=== PATIENT | male | born 1990 | race Caucasian/White ===

== ENCOUNTER 2021-03-05 13:44 | Emergency (ER) | payer SELFPAY ==
--- NOTE | ~2021-03-05 | XR_ITS ---
EXAMINATION: XR ankle LT min 3V DATE: 03/05/2021 14:13 INDICATION: Left ankle injury and tenderness. TECHNIQUE: 4 views of left ankle were obtained. COMPARISON: None. FINDINGS: Bone alignment is normal. No fracture. There is mild midfoot osteoarthritis. There is ankle soft tissue swelling. IMPRESSION: 1. No fracture. Reviewed, dictated and finalized at location [facility]. IMPRESSION: 1. No fracture.
[2021-03-05 13:50] VITALS: BP 129/83; PULSE 95; RESP 14; TEMP 36.6; O2SAT 98
--- NOTE | 2021-03-05 13:50 | ED.LOWEXIN ---
HPI - Extremity Injury (Lower) General Chief Complaint: Extremity Injury, Lower Stated Complaint: Rolled L ankle Time Seen by Provider: 03/05/21 13:50 Source: patient Mode of arrival: wheelchair Limitations: no limitations History of Present Illness HPI Narrative: 30-year-old man comes in today complaining of right ankle pain that started last night while he was jumping on a trampoline. Patient states he rolled it while jumping. Denies any numbness or tingling and he states that he has had very limited weight-bearing on that ankle. He denies prior ankle surgery. complaint: ankle injury Onset (ago): hour(s) ( Approximately 18) Injury: Right: foot Type of Injury: inversion Place: home Severity: moderate Relieving factors: rest Exacerbating factors: weight bearing, movement and palpation Context: jumping Associated symptoms: swelling and able to partially bear weight Other symptoms: none Treatments prior to arrival: NSAIDS Related Data Home Medications Medication Instructions Recorded Confirmed No Home Medications 03/05/21 03/05/21 Allergies Allergy/AdvReac Type Severity Reaction Status Date / Time No Known Allergies Allergy Verified 09/25/19 22:58 Review of Systems Review of Systems: All systems reviewed & are unremarkable except as noted in HPI and below Cardiovascular: Cardiovascular: Denies chest pain and Denies radiating jaw, neck or arm pain Respiratory: Respiratory: Denies cough and Denies dyspnea Gastrointestinal: Gastrointestinal: Denies abdominal pain, Denies nausea and Denies vomiting Musculoskeletal: Musculoskeletal: Reports as per HPI, Denies back pain, Reports arthralgias and Reports joint swelling Integumentary/Breasts: Skin/Breast: Denies pruritus and Denies rash Neurologic: Denies vertigo, Denies dizziness and Denies syncope Hematologic/Lymphatic: Hematologic/Lymphatic: Denies easy bleeding and Denies easy bruising PMFSH Past Medical History Medical History ASD (atrial septal defect) Surgical History Surgical History History of repair of congenital atrial septal defect (ASD) Family History Family History (Updated 09/26/19 @ 00:41 by Darwin ZeeMD) Mother No problems noted. Social History Social History Smoking status: Never smoker Substance use: never Exam Const: General: healthy appearing and alert Orientation/consciousness: patient oriented x3 Limitations: no limitations Other: Mild acute distress. Hard of hearing. Resp: Effort & Inspection: normal respiratory effort and not labored Auscultation: clear to auscultation bilaterally, no rales, no rhonchi and no wheezes Cardio: Rate: regular rate Rhythm: regular rhythm Heart sounds: no murmurs Skin: General skin exam: normal color, no jaundice and no pallor Rashes: no rashes Neuro: General: patient oriented x3, moves all extremities, no focal motor deficits and CN's II-XI intact bilaterally Speech: normal speech Extrem: General: normal to inspection and no clubbing, cyanosis or edema Other: Tenderness and swelling over lateral aspect of the right ankle. There is tenderness over the bony malleolus. There is no tenderness over the medial malleolus, midfoot, me, calcaneus or toes. Psych: Appearance: grossly normal and well kempt Mental Status: mental status grossly normal Affect: normal affect Attitude: cooperative Thought content: Yes Normal thought content present MDM - Extremity Injury (Lower) Imaging Data Radiologist's impression: ITS Impressions Ankle X-Ray 03/05/21 14:14 IMPRESSION: 1. No fracture. Discharge Plan Discharge Clinical Impression: Right ankle sprain Qualifiers: Encounter type: initial encounter Involved ligament of ankle: unspecified ligament Qualified Code(s): S93.401A
[2021-03-05] MEDS: traMADol HCL (*CRX) 50 MG TABLET PO (14:16)
[2021-03-05 14:34] VITALS: RESP 15; O2SAT 98
== END 2021-03-05 14:41 | disposition home or self-care (01) ==
PROVIDERS: Emergency Provider Emergency Medicine
DX: S93.401A Sprain of unspecified ligament of right ankle, initial encounter (principal)
CPT/HCPCS: 73610; 99283; A9270; L4350

== ENCOUNTER 2022-04-06 10:53 | Emergency (ER) | payer MEDICAID, SELFPAY ==
[2022-04-06] VITALS (11 sets, daily range): BP systolic 124–135; BP diastolic 71–99; PULSE 18–119; RESP 18–98; TEMP 36.5–36.7; O2SAT 93–97
--- NOTE | ~2022-04-06 | CT_ITS ---
EXAMINATION: CTA chest PE protocol DATE: 04/06/2022 12:21 INDICATION: Shortness of breath. Elevated elevated d-dimer. TECHNIQUE: Computed tomography angiography (CTA) of the chest was performed with 100 mL Omnipaque-350 intravenous contrast timed to evaluate the pulmonary arteries. Coronal maximum intensity projection 3D-reconstructions were created by the technologist. Automated exposure control and iterative reconst ruction technique were employed. Exam dose: 341.89 mGy-cm total exam DLP. COMPARISON: 04/06/2022 portable AP chest FINDINGS: There is diagnostic contrast enhancement of the pulmonary arteries and no evidence of pulmo nary embolism. No thoracic aortic aneurysm. Cardiomegaly. No pericardial effusion. There are moderate bilateral pleural effusions There there is mild prominence of the hilar and mediastinal nodes, which may be reactive. There are bilateral patchy groundglass infiltrates throughout the lungs, suggesting pulmonary edema. Pneumonia is not excluded. Is reflux of contrast material into the inferior vena cava indicating some heart dysfunction. There is scoliosis and degenerative spurring of the thoracic and lumbar spine. IMPRESSION: Cardiomegaly, congestive changes including bilateral pleural effusions, bilateral patchy groundglass infiltrates. Findings are consistent with congestive heart failure, pulmonary edema No evidence of pulmonary embolism Reviewed, dictated and finalized at [facility]. Reviewed, dictated and finalized at location B. IMPRESSION: Cardiomegaly, congestive changes including bilateral pleural effus ions, bilateral patchy groundglass infiltrates. Findings are consistent with co ngestive heart failure, pulmonary edema No evidence of pulmonary embolism
--- NOTE | ~2022-04-06 | XR_ITS ---
EXAMINATION: XR chest 1V portable INDICATION: Shortness of breath TECHNIQUE: Portable AP chest at 1118 hours COMPARISON: None available FINDINGS: There are bilateral perihilar opacities. There are minimal airspace opacities of the lung b ases, left greater than right. The heart size is upper limits of normal for technique. No pleural eff usion or pneumothorax. There is thoracic dextroscoliosis. IMPRESSION: 1. Bilateral perihilar opacities which could reflect mild pulmonary edema. 2. Reviewed, dictated and finalized at location A.
--- NOTE | 2022-04-06 10:59 | ED.SOB ---
HPI - SOB/Dyspnea General Chief Complaint: Shortness of Breath/Dyspnea Stated Complaint: CHEST PAIN Time Seen by Provider: 04/06/22 10:59 Source: patient Mode of arrival: ambulatory History of Present Illness HPI Narrative: 31-year-old male with a history ASD status post repair as a child, asthma, hard of hearing presents to the ER with a 3 day history of -- cough which is productive of mucoid sputum -- shortness of breath with wheezing -- anterior chest wall pain MD elicited complaint: shortness of breath, cough, pain with inspiration and chest pain Pertinent past history: asthma Onset (ago): day(s) ( started 3 days ago) Timing: constant Severity: moderate Exacerbating factors: nothing Relieving factors: nothing Known history of: asthma Associated symptoms: chest pain, pain with inspiration, cough, wheezing, sputum production and chest congestion Treatment prior to arrival: none Related Data Home oxygen amount: none Home Medications Medication Instructions Recorded Confirmed No Home Medications 03/05/21 04/06/22 Allergies Allergy/AdvReac Type Severity Reaction Status Date / Time No Known Allergies Allergy Verified 04/06/22 11:00 Review of Systems Review of Systems: All systems reviewed & are unremarkable except as noted in HPI and below Constitutional: Constitutional: Reports as per HPI and Reports no additional constitutional complaints Eyes: Eyes: Reports as per HPI and Reports no additional eye complaints ENT: Reports system reviewed and no additional complaints, except as documented and Reports as per HPI Comments: sore throat Cardiovascular: Cardiovascular: Reports as per HPI and Reports no additional cardiovascular complaints Respiratory: Respiratory: Reports as per HPI, Reports no additional respiratory complaints, Reports chest congestion, Reports cough, Reports dyspnea and Reports wheezing Gastrointestinal: Gastrointestinal: Reports as per HPI and Reports no additional gastrointestinal complaints Genitourinary: Genitourinary: Reports no additional male genitourinary complaints and Reports as per HPI Musculoskeletal: Musculoskeletal: Reports no additional musculoskeletal complaints and Reports as per HPI Integumentary/Breasts: Skin/Breast: Reports system reviewed and no additional complaints, except as docu and Reports as per HPI Neurologic: Reports system reviewed and no additional complaints, except as documented and Reports as per HPI Psychiatric: Psychiatric: Reports no additional psychiatric complaints and Reports as per HPI Endocrine: Endocrine: Reports no additional endocrine complaints and Reports as per HPI Hematologic/Lymphatic: Hematologic/Lymphatic: Reports no additional hematologic/lymphatic complaints and Reports as per HPI Allergic/Immunologic: Allergic/Immunologic: Reports no additional allergic/immunologic complaints and Reports as per HPI [facility] Past Medical History Medical History (Updated 04/06/22 @ 12:51 by Pola Vyas MD) ASD (atrial septal defect) Asthma Surgical History Surgical History History of repair of congenital atrial septal defect (ASD) Family History Family History Mother No problems noted. Social History Social History Smoking status: Never smoker Alcohol use details: denies alcohol use Substance use: never Exam Const: General: ill appearing Nutritional Appearance: thin Orientation/consciousness: patient oriented x3 Limitations: no limitations HENMT: Head: normal to inspection Ears: external ears normal General nose exam: Normal external nose present Face and sinus: normal facial exam Mouth: Yes Normal oral and palatal mucosa present Throat: posterior oropharynx normal ( pharyngeal erythema. No exudates.) Eyes: Conjunctivae: conjunctivae normal
--- NOTE | 2022-04-06 11:04 | ECG_ITS ---
Measurements Intervals [place] Rate: 107 P: SD: 0 QRS: 31 QRSD: 101 T: 88 QT: 350 QTc: 468 Interpretive Statements ATRIAL FIBRILLATION WITH RAPID VENTRICULAR RESPONSE NONSPECIFIC T-WAVE ABNORMALITY ABNORMAL RHYTHM ECG NO PREVIOUS ECG AVAILABLE FOR COMPARISON Electronically Signed On 04-06-2022 15:43:33 CDT by Renny Reynolds M.D.
[2022-04-06] MEDS: methylPREDNISolone SOD SUCC 125 MG VIAL IV PUSH (11:21)
[2022-04-06 11:23] LABS: Basophils Absolute Auto 0.03 K/mm3 (0.00-0.10); Basophils Percent Auto 0.5 % (0.0-1.0); Eosinophils Absolute Auto 0.09 K/mm3 (0.02-0.50); Eosinophils Percent Auto 1.4 % (1.0-6.0); Hematocrit 47.3 % (40.0-54.0); Hemoglobin 15.7 g/dL (14.0-18.0); Immature Granulocyte Absolute 0.01 K/mm3 (0.00-0.00); Immature Granulocyte Percent A 0.2 % (0.0-0.0); Lymphocytes Absolute Auto 1.16 K/mm3 (1.10-4.50); Lymphocytes Percent Auto 18.6 % (18.0-42.0); Mean Corpuscular HGB Conc 33.2 g/dL (32.0-36.0); Mean Corpuscular Hemoglobin 29.1 pg (27.0-31.0); Mean Corpuscular Volume 87.6 fL (78.0-102.0); Mean Platelet Volume 9.9 fl (8.7-11.0); Monocytes Absolute Auto 0.52 K/mm3 (0.10-0.90); Monocytes Percent Auto 8.3 % (2.0-11.0); Neutrophils Absolute Auto 4.4 K/mm3 (1.7-7.2); Platelet Count Result 361 K/mm3 (150-420); Red Cell Distribution Width 13.7 % (11.6-14.4); White Blood Count 6.2 K/mm3 (4.8-10.8)
[2022-04-06] MEDS: ALBUTEROL SULFATE (*SP) INHALER 2 PUFF INHALATION ×2 (11:23→11:56)
[2022-04-06 11:43] LABS: Lactic Acid Reflex 1.3 mmol/L (0.4-2.0)
[2022-04-06 11:45] LABS: Alanine Aminotransferase 28 U/L (16-63); Albumin Level 3.9 g/dL (3.4-5.0); Alkaline Phosphatase 81 U/L (46-116); Anion Gap 6 mmol/L (8-16); Aspartate Amino Transferase 16 U/L (15-37); Blood Urea Nitrogen 11 mg/dL (7-18); Calcium 8.7 mg/dL (8.5-10.1); Carbon Dioxide 30 mmol/L (21-32); Chloride 106 mmol/L (98-108); D Dimer 1.17 mg/L (0.19-0.50); Estimated CRCL calculation 117 ml/min; Estimated Glomerular Filt Rate > 60; Glucose 94 mg/dL (70-99); NT Pro B Type Natriuretic Pept 3316 pg/mL (0-125); Osmolality Calculated 293 mOsm/kg (285-295); Potassium 4.5 mmol/L (3.5-5.1); Sodium 142 mmol/L (136-145); Total Protein 6.4 g/dL (6.4-8.2); Troponin I 23.2 ng/L (0.00-60.4)
[2022-04-06 11:59] LABS: SARS-CoV-2 RNA PCR Negative (Negative)
[2022-04-06 12:00] LABS: Influenza A QL RT-PCR Negative (Negative); Influenza B QL RT-PCR Negative (Negative)
[2022-04-06] MEDS: SODIUM CHLORIDE 0.9% IV 500 ML 999 ML IV CONT (12:01)
[2022-04-06] MEDS: FUROSEMIDE INJ 40 MG/4 ML VIAL IV PUSH (13:00)
[2022-04-06 14:24] LABS: Thyroid Stimulating Hormone 2.35 uIU/mL (0.36-3.74)
== END 2022-04-06 16:15 | disposition short-term general hospital (02) ==
PROVIDERS: Emergency Provider Internal Medicine Critical Care Medicine
DX: I50.9 Heart failure, unspecified (principal); Z20.822 Contact with and (suspected) exposure to COVID-19
CPT/HCPCS: 36415; 71045; 71275; 80053; 83605; 83880; 84443; 84484; 85025; 85380; 87081; 87502; 87880; 93005; 94640; 96374; 96375; 99285; A9270; C9803; J1940; J2930; J7040; Q9967; U0003; U0005

== ENCOUNTER 2022-09-17 08:00 | Emergency (ER) | payer OTHER, SELFPAY ==
[2022-09-17 08:20] VITALS: BP 104/77; PULSE 88; RESP 16; TEMP 36.4; O2SAT 98
[2022-09-17 08:25] VITALS: BP 104/77; PULSE 88; RESP 18; TEMP 36.4; O2SAT 98
[2022-09-17 09:39] LABS: Strep Group A RT-PCR NOT DETECTED (Negative)
[2022-09-17 09:45] LABS: Influenza A QL RT-PCR Negative (Negative); Influenza B QL RT-PCR Negative (Negative); SARS-CoV-2 RNA PCR Negative (Negative)
[2022-09-17 09:46] LABS: RSV RNA, RT-PCR Negative (Negative)
--- NOTE | 2022-09-17 09:53 | ED.GENADULT ---
HPI - General Adult General Chief complaint: Upper Respiratory Infection Stated complaint: SORE THROAT CONGESTION Time Seen by Provider: 09/17/22 08:05 Source: patient Mode of arrival: ambulatory Limitations: no limitations History of Present Illness HPI narrative: This is a 32-year-old male who presents with a one-week history of cough shortness sore throat there is no fever or chills no shortness of breath no audible wheezing no nausea vomiting no chest pain. Onset (ago): week(s) Related Data Home Medications Medication Instructions Recorded Confirmed amiodarone 200 mg tablet 200 mg PO DAILY 09/17/22 09/17/22 carvedilol 12.5 mg tablet 12.5 mg PO DAILY 09/17/22 09/17/22 furosemide 20 mg tablet 20 mg PO DAILY 09/17/22 09/17/22 losartan 50 mg tablet 50 mg PO DAILY 09/17/22 09/17/22 rivaroxaban 20 mg tablet (Xarelto) 20 mg PO DAILY 09/17/22 09/17/22 spironolactone 25 mg tablet 25 mg PO DAILY 09/17/22 09/17/22 Allergies Allergy/AdvReac Type Severity Reaction Status Date / Time No Known Allergies Allergy Verified 09/17/22 08:52 Review of Systems Review of Systems: All systems reviewed & are unremarkable except as noted in HPI and below PMFSH Past Medical History Medical History ASD (atrial septal defect) Asthma Surgical History Surgical History History of repair of congenital atrial septal defect (ASD) Family History Family History Mother No problems noted. Social History Social History Smoking status: Never smoker Alcohol use details: denies alcohol use Substance use: never Exam Const: General: healthy appearing Nutritional Appearance: well nourished Orientation/consciousness: patient oriented x3 Limitations: no limitations HENMT: Head: normal to inspection Mouth: Yes Normal oral and palatal mucosa present Teeth and gingiva: dentition normal Other: Posterior pharynx appears erythematous with no tonsillar enlargement Eyes: Conjunctivae: conjunctivae normal Pupils: Equal, round and reactive pupils present EOM: EOMs intact bilaterally Direct Ophthalmoscopy: no photophobia Neck: Neck: normal visual inspection Chest: Chest palpation & inspection: normal inspection of the chest Resp: Effort & Inspection: normal respiratory effort Cardio: Rate: regular rate Rhythm: abnormal rhythm GI: GI Palp: Yes Soft to palpation Auscultation: normal bowel sounds Back/Spine/Pelvis: Back: no CVA tenderness Skin: General skin exam: normal color Rashes: no rashes Neuro: General: patient oriented x3 and moves all extremities Cranial nerves: Yes Nystagmus not present Speech: normal speech Extrem: General: normal to inspection Psych: Mental Status: mental status grossly normal Affect: normal affect Attitude: cooperative Course Course Emergency Course: COVID/influenza/ strep/ RSV all negative eyes patient to follow-up with his primary and to take medicine as prescribed. Vital Signs Vital signs: Vital Signs Temperature 36.4 C L 09/17/22 08:20 Pulse Rate 88 09/17/22 08:20 Respiratory Rate 16 09/17/22 08:20 Blood Pressure 104/77 09/17/22 08:20 Pulse Oximetry 98 09/17/22 08:20 Oxygen Delivery Room Air 09/17/22 08:20 Temperature 36.4 C L 09/17/22 08:25 Pulse Rate 88 09/17/22 08:25 Respiratory Rate 18 09/17/22 08:25 Blood Pressure 104/77 09/17/22 08:25 Pulse Oximetry 98 09/17/22 08:25 Oxygen Delivery Room Air 09/17/22 08:25 Medical Decision Making Vital Signs Vital Signs: Vital Signs Temperature 36.4 C L 09/17/22 08:20 Pulse Rate 88 09/17/22 08:20 Respiratory Rate 16 09/17/22 08:20 Blood Pressure 104/77 09/17/22 08:20 Pulse Oximetry 98 09/17/22 08:20 Oxygen Delivery Room Air 09/17/22 08:20
[2022-09-17 10:00] VITALS: BP 111/81; PULSE 60; RESP 16; TEMP 36.7; O2SAT 96
== END 2022-09-17 10:05 | disposition home or self-care (01) ==
PROVIDERS: Emergency Provider Emergency Medicine
DX: J02.9 Acute pharyngitis, unspecified (principal); Z20.822 Contact with and (suspected) exposure to COVID-19
CPT/HCPCS: 87502; 87634; 87651; 99283; U0003; U0005

== ENCOUNTER 2023-06-06 12:48 | Emergency (ER) | payer OTHER, SELFPAY ==
[2023-06-06] VITALS (33 sets, daily range): BP systolic 113–137; BP diastolic 64–88; PULSE 87–124; RESP 10–24; TEMP 36.4–38; O2SAT 93–99
--- NOTE | ~2023-06-06 | XR_ITS ---
XR chest 2V DATE: 06/06/2023 14:00 INDICATION: Cough, shortness of breath, midsternal chest pain today. History of asthma. TECHNIQUE: PA and lateral views COMPARISON: 04/06/2022 CT pulmonary scan 04/06/2022 portable AP chest FINDINGS: Status post sternotomy. Borderline heart size. There is mild infiltrate or atelectasis in the left retrocardiac area, left lower lobe. The lungs oth erwise appear clear. No pleural effusion or pulmonary vascular congestion or pneumothorax. Prominent thoracolumbar scoliosis. IMPRESSION: Mild infiltrate or atelectasis, left lower lobe Borderline heart size Reviewed, dictated and finalized at location A.
--- NOTE | 2023-06-06 13:41 | ECG_ITS ---
Measurements Intervals [place] Rate: 116 P: [place]: 0 QRS: -6 QRSD: 106 T: 91 QT: 290 QTc: 404 Interpretive Statements ATRIAL FIBRILLATION WITH RAPID VENTRICULAR RESPONSE NONSPECIFIC ST & T-WAVE ABNORMALITY ABNORMAL ECG COMPARED TO ECG 04/06/2022 11:13:05 NO SIGNIFICANT CHANGES Electronically Signed On 06-07-2023 12:07:57 CDT by Adonis Weathers M.D.
[2023-06-06 13:58] LABS: Basophils Absolute Auto 0.02 K/mm3 (0.00-0.10); Basophils Percent Auto 0.2 % (0.0-1.0); Eosinophils Absolute Auto 0.04 K/mm3 (0.02-0.50); Eosinophils Percent Auto 0.5 % (1.0-6.0); Hematocrit 44.4 % (40.0-54.0); Hemoglobin 15.8 g/dL (14.0-18.0); Immature Granulocyte Absolute 0.02 K/mm3 (0.00-0.00); Immature Granulocyte Percent A 0.2 % (0.0-0.0); Lymphocytes Absolute Auto 0.66 K/mm3 (1.10-4.50); Lymphocytes Percent Auto 7.5 % (18.0-42.0); Mean Corpuscular HGB Conc 35.6 g/dL (32.0-36.0); Mean Corpuscular Hemoglobin 30.7 pg (27.0-31.0); Mean Corpuscular Volume 86.2 fL (78.0-102.0); Mean Platelet Volume 9.7 fl (8.7-11.0); Neutrophils Absolute Auto 7.3 K/mm3 (1.7-7.2); Neutrophils Percent Auto 83.6 % (50.0-70.0); Platelet Count Result 336 K/mm3 (150-420); Red Blood Count 5.15 M/mm3 (4.70-6.10); Red Cell Distribution Width 12.3 % (11.6-14.4); White Blood Count 8.8 K/mm3 (4.8-10.8)
[2023-06-06 14:13] LABS: Partial Thromboplastin Time 27.1 SEC (23.90-30.70); Prothrombin Time 11.3 Seconds (9.50-12.10)
--- NOTE | 2023-06-06 14:16 | ED.GENADULT ---
HPI - General Adult General Chief complaint: Shortness of Breath/Dyspnea Stated complaint: chest pain and shortness of breath Time Seen by Provider: 06/06/23 13:03 Source: patient and family Mode of arrival: ambulatory History of Present Illness HPI narrative: 32 yo M with PMHx of congenital heart defect, CHF, Afib s/p cardioversion (on anticoagulation) who presents to ED due to not feeing well started today. Said he had non-productive cough, feeling weak all over, and almost passed out in the shower this morning, a/w nausea and vomiting. He also drank 3 shots of vodka this morning at 6 am before going to sleep and that's when he woke up sick. He drinks about 2-3 shots daily. He has some chest pain with coughing. Onset (ago): hour(s) Location: chest Severity: moderate Relieving factors: none Exacerbating factors: none Associated symptoms: chest pain, cough, fever/chills, nausea/vomiting, shortness of breath and weakness Treatments prior to arrival: none Related Data Home Medications Medication Instructions Recorded Confirmed amiodarone 200 mg tablet 200 mg PO DAILY 09/17/22 06/06/23 carvedilol 12.5 mg tablet 12.5 mg PO DAILY 09/17/22 06/06/23 furosemide 20 mg tablet 20 mg PO DAILY 09/17/22 06/06/23 losartan 50 mg tablet 50 mg PO DAILY 09/17/22 06/06/23 rivaroxaban 20 mg tablet (Xarelto) 20 mg PO DAILY 09/17/22 06/06/23 spironolactone 25 mg tablet 12.5 mg PO DAILY 09/17/22 06/06/23 Allergies Allergy/AdvReac Type Severity Reaction Status Date / Time No Known Allergies Allergy Verified 06/06/23 13:07 Review of Systems Constitutional: Constitutional: Reports as per HPI and Reports no additional constitutional complaints Eyes: Eyes: Reports as per HPI and Reports no additional eye complaints ENT: Reports system reviewed and no additional complaints, except as documented and Reports as per HPI Cardiovascular: Cardiovascular: Reports as per HPI and Reports no additional cardiovascular complaints Respiratory: Respiratory: Reports as per HPI and Reports no additional respiratory complaints Gastrointestinal: Gastrointestinal: Reports as per HPI and Reports no additional gastrointestinal complaints Genitourinary: Genitourinary: Reports as per HPI Musculoskeletal: Musculoskeletal: Reports no additional musculoskeletal complaints and Reports as per HPI Integumentary/Breasts: Skin/Breast: Reports system reviewed and no additional complaints, except as docu and Reports as per HPI Neurologic: Reports system reviewed and no additional complaints, except as documented and Reports as per HPI Psychiatric: Psychiatric: Reports no additional psychiatric complaints and Reports as per HPI Endocrine: Endocrine: Reports no additional endocrine complaints and Reports as per HPI Hematologic/Lymphatic: Hematologic/Lymphatic: Reports no additional hematologic/lymphatic complaints and Reports as per HPI Allergic/Immunologic: Allergic/Immunologic: Reports no additional allergic/immunologic complaints and Reports as per HPI PMFSH Past Medical History Medical History ASD (atrial septal defect) Asthma Surgical History Surgical History History of repair of congenital atrial septal defect (ASD) Family History Family History Mother No problems noted. Social History Social History Smoking status: Never smoker Alcohol use details: denies alcohol use Substance use: never Exam Const: General: cooperative, no acute distress, well developed, alert, awake, average body habitus and well nourished Nutritional Appearance: average body habitus and well nourished Orientation/consciousness: oriented to person, oriented to place and oriented to time Limitations: no limitations HENMT: Head: normal to inspection E
[2023-06-06 14:22] LABS: Alanine Aminotransferase 26 U/L (16-63); Albumin Level 4.2 g/dL (3.4-5.0); Alkaline Phosphatase 80 U/L (46-116); Anion Gap 9 mmol/L (8-16); Aspartate Amino Transferase 16 U/L (15-37); Bilirubin,Total 0.8 mg/dL (0.00-1.00); Blood Urea Nitrogen 17 mg/dL (7-18); Carbon Dioxide 27 mmol/L (21-32); Chloride 102 mmol/L (98-108); Estimated Glomerular Filt Rate > 60; Glucose 102 mg/dL (70-99); NT Pro B Type Natriuretic Pept 532 pg/mL (0-125); Osmolality Calculated 287 mOsm/kg (285-295); Potassium 3.7 mmol/L (3.5-5.1); Sodium 138 mmol/L (136-145); Total Protein 6.8 g/dL (6.4-8.2); Troponin I 6.5 ng/L (0.00-60.4)
[2023-06-06 14:55] LABS: Thyroid Stimulating Hormone Reflex 5.28 u/IU/mL (0.36-3.74)
[2023-06-06 15:00] LABS: Free T4 Free Thyroxine Reflex 2.47 ng/dL (0.76-1.46)
[2023-06-06] MEDS: AZITHROMYCIN 500 MG/NS 250 ML 500 MG/250 ML BAG 250 MG IVPB (15:34)
[2023-06-06 16:03] LABS: Influenza A QL RT-PCR Negative (Negative); Influenza B QL RT-PCR Negative (Negative); RSV RNA, RT-PCR Negative (Negative); SARS-CoV-2 RNA PCR Negative (Negative)
== END 2023-06-06 16:05 | disposition short-term general hospital (02) ==
PROVIDERS: Emergency Provider Emergency Medicine
DX: I48.20 Chronic atrial fibrillation, unspecified (principal); J18.9 Pneumonia, unspecified organism; I50.9 Heart failure, unspecified; Z79.01 Long term (current) use of anticoagulants; Z20.822 Contact with and (suspected) exposure to COVID-19
CPT/HCPCS: 36415; 71046; 80053; 83880; 84439; 84443; 84484; 85025; 85610; 85730; 87637; 93005; 96365; 96367; 99285; J0456; J0696

== ENCOUNTER 2023-06-06 17:30 | Observation (INO) | payer OTHER, SELFPAY ==
[2023-06-06 16:47] VITALS: BMI 26.1
--- NOTE | 2023-06-06 16:54 | ADMGEN ---
This patient, Blanco Wu, was admitted to IMU Room 210-01. Patient/family oriented to hospital policies and general routines including ID bracelet, bed and alarms, visiting hours, pain management, procedures, bathroom and other care routines, personal items, smoking policy, room service/diet, and visiting hours. Information on how to activate the Rapid Response Team has been discussed. Patient/Family are encouraged to report perceived risks to care and to ask questions if they do not understand what they are told or what they should do.
[2023-06-06 17:00] VITALS: BP 129/66; PULSE 84; PULSE 85; RESP 18; TEMP 36.9; O2SAT 96; O2SAT 98
--- NOTE | 2023-06-06 17:34 | PM.IMHP ---
H&P: HPI History of Present Illness Date/Time: 06/06/23 17:34 Chief Complaint: Chest pain Narrative: 32 yo M with PMHx of atrial septal defect status post repair, CHF, Afib s/p cardioversion (on anticoagulation) who presents to ED at [place] due to not feeing well starting today. Patient c/o non-productive cough, feeling weak all over, and almost passed out in the shower this morning, a/w nausea and vomiting. He also drank 3 shots of vodka this morning at 6 am before going to sleep and that's when he woke up sick. He drinks about 2-3 shots daily. He has some chest pain with coughing. He denies any fevers or chills. Patient states his EF was 15% about a year ago and went back up to 40% after cardioversion for his atrial fibrillation. However, he has not had an echo in about a year and is unsure of what his current EF is. Review of Systems Review of Systems: 12 point review of systems was assessed and was negative except as noted in the [place] Past Medical History Medical History (Updated 06/06/23 @ 17:41 by Gem Gomes DO) ASD (atrial septal defect) Asthma Surgical History Surgical History (Updated 06/06/23 @ 17:37 by Gem Gomes DO) History of repair of congenital atrial septal defect (ASD) Family History Family History Mother No problems noted. Social History Social History Smoking packs per day: 2 Smoking cigarettes per day: 40.0 Years smoked: 17 Smoking pack-years: 34.00 Smoking status: Former smoker Tobacco type: cigarettes Smoking end date: 10/11/21 Alcohol intake: current Drinks per week: 6 Alcohol use details: denies alcohol use Substance use: never Substance use type: other Other substance usage details: vape pen with THC Last use: 05/23/23 Lack of Transportation: No Lack of Food: Never True Current Housing: I Have Housing Concerned About Future Housing: No Difficulty Paying Gas/Electric Bills: No Difficulty Paying for Meds: No Currently Unemployed: No Education: Grade School Difficulty w/ Childcare or Family Care: No Spiritual care concerns: No Meds Home Medications and Allergies Home Medications Medication Instructions Recorded Confirmed Type amiodarone 200 mg tablet 200 mg PO DAILY 09/17/22 06/06/23 History carvedilol 12.5 mg tablet 12.5 mg PO DAILY 09/17/22 06/06/23 History furosemide 20 mg tablet 20 mg PO DAILY 09/17/22 06/06/23 History losartan 50 mg tablet 50 mg PO DAILY 09/17/22 06/06/23 History rivaroxaban 20 mg tablet (Xarelto) 20 mg PO DAILY 09/17/22 06/06/23 History spironolactone 25 mg tablet 12.5 mg PO DAILY 09/17/22 06/06/23 History Allergies Allergy/AdvReac Type Severity Reaction Status Date / Time No Known Allergies Allergy Verified 06/06/23 13:07 Vital Signs Vital Signs - 24 hr 06/06/23 17:00 Temperature 98.4 F Pulse Rate 84 Respiratory Rate 18 Blood Pressure 129/66 Pulse Oximetry 98 Exam Narrative: General: No acute distress, alert and oriented per baseline HEENT: Atraumatic, normocephalic, mucous membranes moist CV: Regular rate and rhythm, S1, S2 Lungs: Clear to auscultation bilaterally, no rales or crackles noted, no wheezes, good air entry Abdomen: Soft, nontender, nondistended Extremities: Normal to inspection Skin: No rashes noted, no lesions or wounds seen Psych: Euthymic, normal affect Assessment and Plan Assessment and plan (1) Community acquired pneumonia: Qualifiers: Laterality: left Lung location: lower lobe of lung Qualified Code(s): J18.9 - Pneumonia, unspecified organism Code(s): J18.9 - Pneumonia, unspecified organism Status: Acute Assessment and Plan: Rocephin and azithromycin started 06/06 Monitor QT due to also being on amiodarone Flu, RSV, COVID negative Blood and sputum culture pending
[2023-06-06] MEDS: RIVAROXABAN 20 MG TABLET PO (18:18)
[2023-06-06 18:36] LABS: CRP 1.5 mg/dL (<1.0)
[2023-06-06 18:51] LABS: Procalcitonin 0.1 ng/mL
[2023-06-06 20:00] VITALS: PULSE 80; PULSE 85; RESP 20; O2SAT 99
[2023-06-06 20:29] VITALS: BP 119/65; PULSE 85; RESP 20; TEMP 37.2; O2SAT 99
[2023-06-06 23:16] VITALS: BP 122/64; PULSE 80; RESP 20; TEMP 36.4; O2SAT 100
[2023-06-07] VITALS (8 sets, daily range): BP systolic 113–129; BP diastolic 75–76; PULSE 60–89; RESP 16–20; TEMP 36.5–36.7; O2SAT 100
[2023-06-07 04:58] LABS: Basophils Percent Auto 0.4 % (0.2-1.2); Eosinophils Absolute Auto 0.1 K/mm3 (0-0.3); Eosinophils Percent Auto 2.3 % (0-4.4); Hematocrit 45.5 % (42.0-52.0); Immature Granulocyte Absolute 0.01 K/mm3 (0.00-0.031); Immature Granulocyte Percent A 0.2 % (0-0.5); Lymphocytes Absolute Auto 1.03 K/mm3 (0.9-3.2); Lymphocytes Percent Auto 18.1 % (18.3-44.2); Mean Corpuscular HGB Conc 35.2 g/dl (32-36); Mean Corpuscular Volume 88.2 fl (80-100); Mean Platelet Volume 9.7 fl (7.4-10.4); Monocytes Absolute Auto 0.6 K/mm3 (0.1-0.6); Monocytes Percent Auto 9.7 % (2.6-8.5); Neutrophils Absolute Auto 3.9 K/mm3 (1.3-6.7); Neutrophils Percent Auto 69.3 % (45.5-73.1); Platelet Count Result 300 k/mm3 (150-375); Red Blood Count 5.16 M/mm3 (4.6-6.20); Red Cell Distribution Width 12.6 % (11.5-14.5); White Blood Count 5.7 K/mm3 (4.5-10.0)
[2023-06-07 05:11] LABS: Alanine Aminotransferase 25 U/L (6-50); Albumin Level 4.1 g/dL (3.5-5.1); Alkaline Phosphatase 67 U/L (38-126); Anion Gap 4 mmol/L (8-16); Aspartate Amino Transferase 23 U/L (17-59); Blood Urea Nitrogen 15 mg/dL (9-20); Carbon Dioxide 28 mmol/L (22-30); Chloride 101 mmol/L (98-107); Estimated CRCL calculation 118 ml/min; Estimated Glomerular Filt Rate > 60; Glucose 92 mg/dL (65-110); Potassium 3.6 mmol/L (3.4-5.0); Sodium 133 mmol/L (137-145)
[2023-06-07] MEDS: carvediloL 12.5 MG TABLET PO (07:42)
[2023-06-07] MEDS: FUROSEMIDE 20 MG TABLET PO (07:43)
[2023-06-07] MEDS: AMIODARONE HCL 200 MG TABLET PO (07:43)
[2023-06-07] MEDS: SPIRONOLACTONE 12.5 MG TABLET PO (07:43)
[2023-06-07] MEDS: LOSARTAN POTASSIUM 50 MG TABLET PO (07:43)
--- NOTE | 2023-06-07 08:14 | PM.IMPN ---
Progress Note: A&P Assessment and Plan (1) Community acquired pneumonia: Qualifiers: Laterality: left Lung location: lower lobe of lung Qualified Code(s): J18.9 - Pneumonia, unspecified organism Code(s): J18.9 - Pneumonia, unspecified organism Status: Inactive Assessment and Plan: Rocephin and azithromycin started 06/06 Monitor QT due to also being on amiodarone Flu, RSV, COVID negative Blood and sputum culture pending (2) History of repair of congenital atrial septal defect (ASD): Code(s): Z87.74 - Personal history of (corrected) congenital malformations of heart and circulatory system Status: Acute Assessment and Plan: Stable, monitor, continue home medications (3) Atrial fibrillation: Code(s): I48.91 - Unspecified atrial fibrillation Status: Acute Assessment and Plan: Currently rate controlled, continue rhythm control with amiodarone and anticoagulation with Xarelto (4) Heart failure: Code(s): I50.9 - Heart failure, unspecified Status: Acute Assessment and Plan: Unsure of EF, will attempt to obtain old echo [employer] [facility] is in [place], [place] Echo ordered and pending (5) Abnormal thyroid function test: Code(s): R94.6 - Abnormal results of thyroid function studies Status: Acute Assessment and Plan: Possibly new onset hypothyroidism? TSH 2.35 in 04/01, now 5.28 with elevated T4 Repeat TSH in 1 month outpatient, consider starting levothyroxine Plan DVT prophylaxis with Xarelto GI prophylaxis not indicated Code status full code Subjective Date/time seen: 06/07/23 08:14 Interval history: No overnight events noted. No chest pain or shortness of breath. No nausea, vomiting or diarrhea. No fevers or chills. Review of Systems Review of Systems: 12 point review of systems was assessed and was negative except as noted in the HPI Exam Narrative: General: No acute distress, alert and oriented per baseline HEENT: Atraumatic, normocephalic, mucous membranes moist CV: Regular rate and rhythm, S1, S2 Lungs: Clear to auscultation bilaterally, no rales or crackles noted, no wheezes, good air entry Abdomen: Soft, nontender, nondistended Extremities: Normal to inspection Skin: No rashes noted, no lesions or wounds seen Psych: Euthymic, normal affect Objective Data Vital Signs Vital Signs: Vital Signs - 24 hr 06/06/23 17:00 06/06/23 17:00 06/06/23 17:00 Temperature 98.4 F Pulse Rate 84 85 Respiratory Rate 18 Blood Pressure 129/66 Pulse Oximetry 98 96 Oxygen Delivery Room Air 06/06/23 20:29 06/06/23 20:00 06/06/23 20:00 Temperature 98.9 F Pulse Rate 85 80 85 Respiratory Rate 20 20 Blood Pressure 119/65 Pulse Oximetry 99 99 Oxygen Delivery Room Air 06/06/23 23:16 06/07/23 00:00 06/07/23 04:25 Temperature 97.5 F L 97.7 F Pulse Rate 80 80 87 Respiratory Rate 20 20 20 Blood Pressure 122/64 129/75 Pulse Oximetry 100 100 100 Oxygen Delivery Room Air 06/07/23 00:00 06/07/23 04:00 06/07/23 04:00 Temperature Pulse Rate 68 78 87 Respiratory Rate 20 Blood Pressure Pulse Oximetry 100 Oxygen Delivery Room Air 06/07/23 07:42 06/07/23 07:43 06/07/23 07:52 Temperature 98.0 F Pulse Rate 60 60 70 Respiratory Rate 16 Blood Pressure 113/76 Pulse Oximetry 100 Oxygen Delivery Intake/Output Intake/Output: Intake & Output 06/04/23 06/05/23 06/06/23 06/07/23 23:59 23:59 23:59 23:59 Intake Total 120 Output Total 0 Balance 120 Meds/Results Medications: Active Medications Generic Name Dose Route Start Last Admin Trade Name Freq PRN Reason Stop Dose Admin Acetaminophen 650 mg 06/06/23 17:30 Acetaminophen 325 Mg Tablet PO Q4H PRN Mild Pain (1-3) or Fever Al Hydrox/Mg Hydrox/Simethicone 30 ml 06/06/23 17:30 Mag Hydrox/Al Hydrox/Simeth 30 Ml Udc PO QID P
--- NOTE | 2023-06-07 09:14 | PM.CNCAR ---
Assessment and Plan Assessment and plan (1) Atrial fibrillation: Code(s): I48.91 - Unspecified atrial fibrillation Status: Acute Assessment and Plan: History of atrial fibrillation status post cardioversion last year now with recurrent atrial fibrillation. He does not know when he went back into atrial fibrillation following his cardioversion. He did have RVR on initial EKG, but at this point his rate is controlled on his current medical regimen and he and chronically anticoagulated with Xarelto. Will continue with amiodarone 200mg daily and coreg 12.5mg daily. He will follow up with his established truck assembler at [place] regarding repeat DCCV or possible EP referral. (2) Cardiomyopathy: Code(s): I42.9 - Cardiomyopathy, unspecified Status: Acute Assessment and Plan: History of nonischemic cardiomyopathy with an EF of 20 -25% by echo in July of 2022, patient reports improved EF to 40%. Had declined ICD in the past. He does not have any symptoms to suggest acute CHF exacerbation. Continue current medical regimen with carvedilol 12.5 mg daily, losartan 50 mg daily, spironolactone 12.5 mg daily. Echocardiogram has been ordered by the hospitalist. Will follow-up on results. Plan Cardiac problems are stable. I instructed patient to follow up with his established truck assembler at [place] within a couple weeks of hospital discharge. If he wishes to establish care with our practice, will ensure he has a follow up appointment. Okay for discharge today from a cardiac perspective. History of Present Illness History of Present Illness Consult date/time: 06/07/23 09:14 Requesting physician: Prieto Begum APRN Consult reason: atrial fibrillation Reason For Visit: atrial fib Narrative: Blanco Wu is a 32 year old male with past medical history of atrial septal defect status post repair, dilated cardiomyopathy (EF 20 - 25% by echo in Jul 2022), and atrial fibrillation. He comes to the hospital with a chief complaint of shortness of breath. He had not been feeling well for 1-2 days but yesterday had increasing shortness of breath. He also had some nausea and vomiting while he was in the shower. He was transferred to [facility] from [facility] and is being treated for pneumonia. Cardiology is being asked to see him because of atrial fibrillation and CHF. He denies any chest pain, palpitations, syncope, orthopnea, or lower extremity edema. At the time of my visit with him he is resting comfortably in bed and has no complaints. Review of Systems Review of Systems: All systems reviewed & are unremarkable except as noted in HPI and below PMFSH Past Medical History Medical History ASD (atrial septal defect) Asthma Surgical History Surgical History History of repair of congenital atrial septal defect (ASD) Family History Family History Mother No problems noted. Social History Social History Smoking packs per day: 2 Smoking cigarettes per day: 40.0 Years smoked: 17 Smoking pack-years: 34.00 Smoking status: Former smoker Tobacco type: cigarettes Smoking end date: 10/11/21 Alcohol intake: current Drinks per week: 6 Alcohol use details: denies alcohol use Substance use: never Substance use type: other Other substance usage details: vape pen with THC Last use: 05/23/23 Lack of Transportation: No Lack of Food: Never True Current Housing: I Have Housing Concerned About Future Housing: No Difficulty Paying Gas/Electric Bills: No Difficulty Paying for Meds: No Currently Unemployed: No Education: Grade School Difficulty w/ Childcare or Family Care: No Spiritual care concerns: No Meds Home Medications and Allergies
--- NOTE | 2023-06-07 10:52 | PM.DS ---
DS: Admitting Diagnosis Discharge Date 06/07/23 Admitting Diagnosis sob DS: Discharge Diagnosis Discharge Diagnosis (1) Community acquired pneumonia: Qualifiers: Laterality: left Lung location: lower lobe of lung Qualified Code(s): J18.9 - Pneumonia, unspecified organism Code(s): J18.9 - Pneumonia, unspecified organism Status: Inactive Assessment and Plan: Rocephin and azithromycin started 06/06 Monitor QT due to also being on amiodarone Flu, RSV, COVID negative Blood and sputum culture pending (2) History of repair of congenital atrial septal defect (ASD): Code(s): Z87.74 - Personal history of (corrected) congenital malformations of heart and circulatory system Status: Acute Assessment and Plan: Stable, monitor, continue home medications (3) Atrial fibrillation: Code(s): I48.91 - Unspecified atrial fibrillation Status: Acute Assessment and Plan: Currently rate controlled, continue rhythm control with amiodarone and anticoagulation with Xarelto (4) Heart failure: Code(s): I50.9 - Heart failure, unspecified Status: Acute Assessment and Plan: Unsure of EF, will attempt to obtain old echo [employer] is in [place], [place] Echo ordered and pending (5) Abnormal thyroid function test: Code(s): R94.6 - Abnormal results of thyroid function studies Status: Acute Assessment and Plan: Possibly new onset hypothyroidism? TSH 2.35 in 04/01, now 5.28 with elevated T4 Repeat TSH in 1 month outpatient, consider starting levothyroxine Plan DVT prophylaxis with Xarelto GI prophylaxis not indicated Code status full code DS: Summary Hospital Course Hospital Course: 32 yo M with PMHx of atrial septal defect status post repair, CHF, Afib s/p cardioversion (on anticoagulation) who presents to ED at [facility] due to not feeing well starting today. Patient c/o non-productive cough, feeling weak all over, and almost passed out in the shower this morning, a/w nausea and vomiting. He also drank 3 shots of vodka this morning at 6 am before going to sleep and that's when he woke up sick. He drinks about 2-3 shots daily. He has some chest pain with coughing.? He denies any fevers or chills. Rocephin and azithromycin started 8/27 Monitor QT due to also being on amiodarone Flu, RSV, COVID negative Blood and sputum culture pending Possibly new onset hypothyroidism? TSH 2.35 in 04/01, now 5.28 with elevated T4 Repeat TSH in 1 month outpatient, consider starting levothyroxine Cardiology was consulted and stated patient was stable for discharge. Please see above and [facility] rec for details. Time Spent with Patient Time attestation: Total time spent providing and/or coordinating discharge services: Exam Narrative: General: No acute distress, alert and oriented per baseline HEENT: Atraumatic, normocephalic, mucous membranes moist CV: Regular rate and rhythm, S1, S2 Lungs: Clear to auscultation bilaterally, no rales or crackles noted, no wheezes, good air entry Abdomen: Soft, nontender, nondistended Extremities: Normal to inspection Skin: No rashes noted, no lesions or wounds seen Psych: Euthymic, normal affect DS: Data Data Completed and Pending Labs on day of discharge: Labs from last 24 hours 06/07/23 06/06/23 06/06/23 04:34 18:07 18:05 WBC 5.7 RBC 5.16 Hgb 16.0 Hct 45.5 MCV 88.2 MCH 31.0 MCHC 35.2 RDW 12.6 Plt Count 300 MPV 9.7 Immature Gran % (Auto) 0.2 Neut % (Auto) 69.3 Lymph % (Auto) 18.1 L [place] % (Auto) 9.7 H Eos % (Auto) 2.3 Baso % (Auto) 0.4 Lymph # (Auto) 1.03 [place]ie # (Auto) 0.6 Eos # (Auto) 0.1 Baso # (Auto) 0.0 Abs Immat Gran (auto) 0.01 Absolute Neuts (auto) 3.9 Absolute Nucleated RBC 0.0 Nucleated RBC % 0.0 Sodium 133 L Potassium 3.6 Chloride 101 Carbon Dioxide 28 Anion Gap 4 L
== END 2023-06-07 11:58 | disposition home or self-care (01) ==
PROVIDERS: Admitting Provider Student in an Organized Health Care Education/Training Program; Visit Provider Student in an Organized Health Care Education/Training Program
DX: J18.9 Pneumonia, unspecified organism (principal); I50.9 Heart failure, unspecified; I48.91 Unspecified atrial fibrillation; I42.9 Cardiomyopathy, unspecified; J45.909 Unspecified asthma, uncomplicated; R94.6 Abnormal results of thyroid function studies; F17.210 Nicotine dependence, cigarettes, uncomplicated; F10.90 Alcohol use, unspecified, uncomplicated; Z79.01 Long term (current) use of anticoagulants; Z87.74 Personal history of (corrected) congenital malformations of heart and circulatory system; Z79.899 Other long term (current) drug therapy
CPT/HCPCS: 36415; 80053; 84145; 84443; 85025; 86140; 87040; A9270; G0378; G0379

== ENCOUNTER 2023-09-04 11:04 | Emergency (ER) | payer OTHER, SELFPAY ==
[2023-09-04 11:09] VITALS: BP 125/81; PULSE 78; RESP 18; TEMP 37.1; O2SAT 98
--- NOTE | 2023-09-04 11:11 | ED.EAR ---
HPI - Ear Problem General Chief complaint: Ear Stated complaint: ear pain Time Seen by Provider: 09/04/23 11:11 Source: patient Mode of arrival: ambulatory Limitations: no limitations History of Present Illness HPI Narrative: Pt presents with bilateral ear pain for several days, now having sore throat as well, a/w some congestion and upper respiratory symptoms MD Complaint: ear pain Location: bilateral Duration: constant Severity: moderate Relieving factors: nothing Exacerbating factors: nothing Context: Reports recent illness Discharge from ear: Reports no Treatment prior to arrival: none Related Data Home Medications Medication Instructions Recorded Confirmed amiodarone 200 mg tablet 200 mg PO DAILY 09/17/22 06/06/23 carvedilol 12.5 mg tablet 12.5 mg PO DAILY 09/17/22 06/06/23 furosemide 20 mg tablet 20 mg PO DAILY 09/17/22 06/06/23 losartan 50 mg tablet 50 mg PO DAILY 09/17/22 06/06/23 rivaroxaban 20 mg tablet (Xarelto) 20 mg PO DAILY 09/17/22 06/06/23 spironolactone 25 mg tablet 12.5 mg PO DAILY 09/17/22 06/06/23 Allergies Allergy/AdvReac Type Severity Reaction Status Date / Time No Known Allergies Allergy Verified 06/06/23 13:07 Review of Systems Constitutional: Constitutional: Reports as per HPI and Reports no additional constitutional complaints Eyes: Eyes: Reports as per HPI and Reports no additional eye complaints ENT: Reports system reviewed and no additional complaints, except as documented and Reports as per HPI Cardiovascular: Cardiovascular: Reports as per HPI and Reports no additional cardiovascular complaints Respiratory: Respiratory: Reports as per HPI and Reports no additional respiratory complaints Gastrointestinal: Gastrointestinal: Reports as per HPI and Reports no additional gastrointestinal complaints Genitourinary: Genitourinary: Reports as per HPI Musculoskeletal: Musculoskeletal: Reports no additional musculoskeletal complaints and Reports as per HPI Integumentary/Breasts: Skin/Breast: Reports system reviewed and no additional complaints, except as docu and Reports as per HPI Neurologic: Reports system reviewed and no additional complaints, except as documented and Reports as per HPI Psychiatric: Psychiatric: Reports no additional psychiatric complaints and Reports as per HPI Endocrine: Endocrine: Reports no additional endocrine complaints and Reports as per HPI Hematologic/Lymphatic: Hematologic/Lymphatic: Reports no additional hematologic/lymphatic complaints and Reports as per HPI Allergic/Immunologic: Allergic/Immunologic: Reports no additional allergic/immunologic complaints and Reports as per HPI [facility] Past Medical History Medical History ASD (atrial septal defect) Asthma Surgical History Surgical History History of repair of congenital atrial septal defect (ASD) Family History Family History Mother No problems noted. Social History Social History Smoking packs per day: 2 Smoking cigarettes per day: 40.0 Years smoked: 17 Smoking pack-years: 34.00 Smoking status: Former smoker Tobacco type: cigarettes Smoking end date: 10/11/21 Alcohol intake: current Drinks per week: 6 Alcohol use details: denies alcohol use Substance use: never Substance use type: other Other substance usage details: vape pen with THC Last use: 05/23/23 Lack of Transportation: No Lack of Food: Never True Current Housing: I Have Housing Concerned About Future Housing: No Difficulty Paying Gas/Electric Bills: No Difficulty Paying for Meds: No Currently Unemployed: No Education: Grade School Difficulty w/ Childcare or Family Care: No Spiritual care concerns: No Exam Const: General: cooperative, healthy appearing
[2023-09-04] MEDS: AMOXICILLIN/CLAVULANATE K 875-125 MG TAB 1 TABLET PO (11:43)
== END 2023-09-04 11:44 | disposition home or self-care (01) ==
LOC: CHSED 11:27
PROVIDERS: Emergency Provider Emergency Medicine
DX: H65.196 Other acute nonsuppurative otitis media, recurrent, bilateral (principal); Z87.891 Personal history of nicotine dependence
CPT/HCPCS: 99283; A9270

== ENCOUNTER 2024-01-16 17:35 | Emergency (ER) | payer OTHER, SELFPAY ==
[2024-01-16] VITALS (14 sets, daily range): BP systolic 104–115; BP diastolic 64–82; PULSE 74–101; RESP 14–22; TEMP 36.6–37.3; O2SAT 95–98
--- NOTE | ~2024-01-16 | XR_ITS ---
EXAMINATION: XR chest 2V Exam Date/Time: 01/16/2024 18:02 CDT HISTORY: sob x4 days Comparison: 06/06/2023. RESULT: Lines, tubes, and devices: Fractured lower sternotomy wire. Curvilinear radiopacity projecting over the left lower chest. Lungs and pleura: Diffuse reticular opacities with cuffing. Cardiomediastinal silhouette: Stable. Other: No acute osseous or upper abdominal finding. Thoracic scoliosis. IMPRESSION: Pulmonary opacities may represent respiratory bronchiolitis in the appropriate clinical context. Curvilinear radiopacity projecting over the soft tissues of the left lower chest may represent a migr ated wire, correlate for pain/tenderness. Reviewed, dictated and finalized at location K. IMPRESSION: Pulmonary opacities may represent respiratory bronchiolitis in the appropriate clinical context. Curvilinear radiopacity projecting over the soft tissues of the left lower ches t may represent a migrated wire, correlate for pain/tenderness.
--- NOTE | 2024-01-16 17:47 | ED.SOB ---
HPI - SOB/Dyspnea General Chief Complaint: Shortness of Breath/Dyspnea Stated Complaint: short of breath Time Seen by Provider: 01/16/24 17:45 Source: patient Mode of arrival: ambulatory Limitations: no limitations History of Present Illness HPI Narrative: patient is a 33-year-old male with prior open heart surgery as a child for a patent foramen ovale apparently. One year ago, the patient started to have congestive heart failure and has been on medications since that event. Patient is here with shortness of breath on exertion. This has been going on for the past 4 days. Patient has atrial fibrillation with Xarelto use. MD elicited complaint: shortness of breath Pertinent past history: congestive heart failure Onset (ago): day(s) (4) Context: occurred during exertion Timing: constant Severity: moderate Exacerbating factors: exertion Relieving factors: rest Known history of: congestive heart failure Associated symptoms: chest congestion Treatment prior to arrival: none Related Data Home oxygen amount: none Home Medications Medication Instructions Recorded Confirmed amiodarone 200 mg tablet 200 mg PO DAILY 09/17/22 01/16/24 carvedilol 12.5 mg tablet 25 mg PO DAILY 09/17/22 01/16/24 furosemide 20 mg tablet 20 mg PO DAILY 09/17/22 01/16/24 losartan 50 mg tablet 50 mg PO DAILY 09/17/22 01/16/24 rivaroxaban 20 mg tablet (Xarelto) 20 mg PO DAILY 09/17/22 01/16/24 spironolactone 25 mg tablet 12.5 mg PO DAILY 09/17/22 01/16/24 Allergies Allergy/AdvReac Type Severity Reaction Status Date / Time No Known Allergies Allergy Verified 06/06/23 13:07 Review of Systems Review of Systems: All systems reviewed & are unremarkable except as noted in HPI and below Constitutional: Constitutional: Reports no additional constitutional complaints Eyes: Eyes: Reports no additional eye complaints ENT: Reports system reviewed and no additional complaints, except as documented Cardiovascular: Cardiovascular: Reports no additional cardiovascular complaints Respiratory: Respiratory: Reports no additional respiratory complaints Gastrointestinal: Gastrointestinal: Reports no additional gastrointestinal complaints Genitourinary: Genitourinary: Reports no additional male genitourinary complaints Musculoskeletal: Musculoskeletal: Reports no additional musculoskeletal complaints Integumentary/Breasts: Skin/Breast: Reports system reviewed and no additional complaints, except as docu Neurologic: Reports system reviewed and no additional complaints, except as documented Psychiatric: Psychiatric: Reports no additional psychiatric complaints Endocrine: Endocrine: Reports no additional endocrine complaints Hematologic/Lymphatic: Hematologic/Lymphatic: Reports no additional hematologic/lymphatic complaints Allergic/Immunologic: Allergic/Immunologic: Reports no additional allergic/immunologic complaints PMFSH Past Medical History Medical History ASD (atrial septal defect) Asthma Surgical History Surgical History History of repair of congenital atrial septal defect (ASD) Family History Family History Mother No problems noted. Social History Social History Smoking packs per day: 2 Smoking cigarettes per day: 40.0 Years smoked: 17 Smoking pack-years: 34.00 Smoking status: Former smoker Tobacco type: cigarettes Smoking end date: 10/11/21 Alcohol intake: current Drinks per week: 6 Alcohol use details: denies alcohol use Substance use: never Substance use type: other Other substance usage details: vape pen with THC Last use: 05/23/23 Lack of Transportation: No Lack of Food: Never True Current Housing: I Have Housing Concerned About Future Housing: No Difficulty Paying Gas/Elec
--- NOTE | 2024-01-16 18:00 | ECG_ITS ---
Measurements Intervals [place] Rate: 85 P: * MN: * QRS: -16 QRSD: 109 T: 56 QT: 384 AVG RR: 698 QTc: 427 QTCB: 459 QTCF: 432 Interpretive Statements ATRIAL FIBRILLATION NONSPECIFIC ST & T WAVE ABNORMALITY ABNORMAL RHYTHM ECG SEE SCANNED COPY FOR SIGNATURE MTDD
[2024-01-16 18:05] LABS: Hematocrit 45.7 % (40.0-54.0); Hemoglobin 15.6 g/dL (14.0-18.0); Mean Corpuscular HGB Conc 34.1 g/dL (32-36); Mean Corpuscular Hemoglobin 29.2 pg (27.0-31.0); Mean Corpuscular Volume 85.6 fL (78.0-102.0); Mean Platelet Volume 9.2 fl (8.7-11.0); Platelet Count Result 313 K/mm3 (150-420); Red Blood Count 5.34 M/mm3 (4.70-6.10); Red Cell Distribution Width 12.6 % (11.6-14.4); White Blood Count 3.2 K/mm3 (4.8-10.8)
[2024-01-16 18:21] LABS: INR 1.5; Partial Thromboplastin Time 38.3 Sec (23.9-30.70); Prothrombin Time 15.6 Seconds (9.50-12.1)
[2024-01-16 18:24] LABS: Band Neutrophils Percent 0 % (0-6); Basophils Percent Manual 0 % (0-1); Eosinophils Absolute Manual 0.03 K/mm3 (0.02-0.50); Eosinophils Percent Manual 1 % (1-6); Lymphocytes Absolute Manual 1.15 K/mm3 (1.1-4.5); Lymphocytes Percent Manual 36 % (18-44); Monocytes Absolute Manual 0.12 K/mm3 (0.1-0.90); Monocytes Percent Manual 4 % (3-9); Neutrophils Absolute Manual 1.88 K/mm3 (1.3-6.7); Neutrophils Percent Manual 59 % (46-73); Platelet Estimate Adequate (Adequate); Total Cells Counted 100
[2024-01-16 18:29] LABS: Lactic Acid Reflex 1.5 mmol/L (0.4-2.0)
[2024-01-16 18:31] LABS: Alanine Aminotransferase 18 U/L (16-63); Albumin Level 3.6 g/dL (3.4-5.0); Alkaline Phosphatase 104 U/L (46-116); Anion Gap 9 mmol/L (4-12); Aspartate Amino Transferase 17 U/L (15-37); Blood Urea Nitrogen 12 mg/dL (7-18); Calcium 8.6 mg/dL (8.5-10.1); Carbon Dioxide 27 mmol/L (21-32); Chloride 102 mmol/L (98-108); Estimated CRCL calculation 87 ml/min; Estimated Glomerular Filt Rate > 60; Glucose 150 mg/dL (70-99); NT Pro B Type Natriuretic Pept 967 pg/mL (0-125); Osmolality Calculated 288 mOsm/kg (285-295); Potassium 3.6 mmol/L (3.5-5.1); Sodium 138 mmol/L (136-145); Total Protein 6.4 g/dL (6.4-8.2); Troponin I 7.1 ng/L (0.00-60.4)
--- NOTE | 2024-01-16 18:57 | PC.NURSE ---
report to luis vargas. all questions answered
[2024-01-16] MEDS: AMOXICILLIN/CLAVULANATE K 875-125 MG TAB 1 TABLET PO (19:06)
[2024-01-16] MEDS: methylPREDNISolone SOD SUCC 125 MG VIAL IM (19:07)
[2024-01-16] MEDS: IPRATROPIUM 0.5 MG/ALBUTEROL SULFATE 2.5 MG AMPUL.NEB 3 ML INHALATION (19:11)
--- NOTE | 2024-01-20 14:03 | PC.NURSE ---
BLOOD CULTURE X 2 PRELIMINARY RESULTS NO GROWTH TO DATE.
--- NOTE | 2024-01-23 16:35 | PC.NURSE ---
Final blood culture report: no growth after 5 days, no further action or treatment needed
== END 2024-01-16 19:49 | disposition home or self-care (01) ==
PROVIDERS: Emergency Provider Emergency Medicine
DX: J40 Bronchitis, not specified as acute or chronic (principal); I48.91 Unspecified atrial fibrillation; Z79.01 Long term (current) use of anticoagulants; I50.9 Heart failure, unspecified; Z87.891 Personal history of nicotine dependence
CPT/HCPCS: 36415; 71046; 80053; 83605; 83880; 84484; 85025; 85610; 85730; 87040; 93005; 94640; 96372; 99284; A9270; J2919

== ENCOUNTER 2024-07-08 20:06 | Emergency (ER) | payer SELFPAY ==
[2024-07-08] VITALS (7 sets, daily range): BP systolic 95–134; BP diastolic 72–97; PULSE 95–154; RESP 19–28; O2SAT 90–100
--- NOTE | ~2024-07-08 | XR_ITS ---
XR chest 1V portable Ordering provider: Renny Saldaña MD History: 33 years Male with . Shortness of breath X 1 WEEK. . Comparison: April 16, 2024 FINDINGS: MEDIASTINUM: The cardiac silhouette is slightly enlarged. Congestive shila. LUNGS: No infiltrates, effusions or pneumothorax. Prominent markings bilaterally with bilateral inter stitial changes. OTHER: No free air under the diaphragm. Degenerative spine with dextroscoliosis. IMPRESSION: Cardiomegaly with congestive shila and interstitial changes suggestive of pulmonary edema. Pneumonia i s also possible. Reviewed, dictated and finalized at location A. IMPRESSION: Cardiomegaly with congestive shila and interstitial changes suggestive of pulmon kenny edema. Pneumonia is also possible.
--- NOTE | 2024-07-08 20:10 | ECG_ITS ---
Test Date: 2024-07-08 20:26:40 Measurements Intervals [place] Rate: 98 P: 0 KS: 0 QRS: -9 QRSD: 103 T: 77 QT: 371 QTc: 476 Interpretive Statements ATRIAL FIBRILLATION DELAYED PRECORDIAL R/S TRANSITION NONSPECIFIC ST-T WAVE ABNORMALITY- HIGH LATERAL LEADS BASELINE ARTIFACT- I, II, III, AVR, AVL, AVF ABNORMAL ECG No previous ECG available for comparison Electronically Signed On 07-09-2024 09:16:43 CDT by Dieter Thorpe D.O.
--- NOTE | 2024-07-08 20:15 | PC.NURSE ---
xray at the bedside
--- NOTE | 2024-07-08 20:17 | PC.NURSE ---
covid swab sent to lab
[2024-07-08] MEDS: IPRATROPIUM 0.5 MG/ALBUTEROL SULFATE 2.5 MG AMPUL.NEB 3 ML INHALATION (20:26)
[2024-07-08] MEDS: methylPREDNISolone SOD SUCC 125 MG VIAL IV PUSH (20:26)
--- NOTE | 2024-07-08 20:37 | PC.NURSE ---
lab at the bedside for blood cultures
--- NOTE | 2024-07-08 20:38 | PC.NURSE ---
patient updated on plan of care. verbalized understanding. call light in reach. denies any needs at this time.
[2024-07-08 20:41] LABS: Basophils Absolute Auto 0.03 K/mm3 (0.00-0.10); Basophils Percent Auto 0.6 % (0.0-1.0); Eosinophils Absolute Auto 0.23 K/mm3 (0.02-0.50); Eosinophils Percent Auto 4.9 % (1.0-6.0); Hematocrit 44.9 % (40.0-54.0); Hemoglobin 15.2 g/dL (14.0-18.0); Immature Granulocyte Absolute 0.01 K/mm3 (0.00-0.00); Immature Granulocyte Percent A 0.2 % (0.0-0.0); Lymphocytes Absolute Auto 1.51 K/mm3 (1.10-4.50); Lymphocytes Percent Auto 31.9 % (18.0-42.0); Mean Corpuscular HGB Conc 33.9 g/dL (32-36); Mean Corpuscular Hemoglobin 29.3 pg (27.0-31.0); Mean Corpuscular Volume 86.5 fL (78.0-102.0); Mean Platelet Volume 10.1 fl (8.7-11.0); Monocytes Absolute Auto 0.35 K/mm3 (0.10-0.90); Monocytes Percent Auto 7.4 % (2.0-11.0); Neutrophils Absolute Auto 2.61 K/mm3 (1.70-7.20); Platelet Count Result 396 K/mm3 (150-420); Red Blood Count 5.19 M/mm3 (4.70-6.10); White Blood Count 4.7 K/mm3 (4.8-10.8)
--- NOTE | 2024-07-08 20:48 | PC.NURSE ---
confirmed with patient again that he has not been taking his home medications other that his rescue inhaler. states the medicine makes me feel bad . educated patient on the importance of his medications. patient reports that he has been unable to contact his senior billing consultant. i call and leave voice messages and no one calls me back . encouraged patient to continue to call his pcp and senior billing consultant.
[2024-07-08 20:57] LABS: SARS-CoV-2 RNA PCR Negative (Negative)
[2024-07-08 20:58] LABS: Influenza A QL RT-PCR Negative (Negative); Influenza B QL RT-PCR Negative (Negative); RSV RNA, RT-PCR Negative (Negative)
[2024-07-08 20:59] LABS: Partial Thromboplastin Time 26.2 SEC (22.3-31.6)
[2024-07-08 21:00] LABS: Lactic Acid Reflex 0.9 mmol/L (0.4-2.0)
[2024-07-08 21:09] LABS: Alanine Aminotransferase 27 U/L (16-63); Albumin Level 3.5 g/dL (3.4-5.0); Alkaline Phosphatase 95 U/L (46-116); Anion Gap 6 mmol/L (4-12); Aspartate Amino Transferase 18 U/L (15-37); Bilirubin,Total 0.7 mg/dL (0.00-1.00); Blood Urea Nitrogen 17 mg/dL (7-18); Calcium 8.8 mg/dL (8.5-10.1); Carbon Dioxide 31 mmol/L (21-32); Chloride 104 mmol/L (98-108); Estimated Glomerular Filt Rate > 60; Glucose 99 mg/dL (70-99); Magnesium 2.3 mg/dL (1.8-2.4); NT Pro B Type Natriuretic Pept 1839 pg/mL (0-125); Osmolality Calculated 293 mOsm/kg (285-295); Potassium 3.8 mmol/L (3.5-5.1); Sodium 141 mmol/L (136-145); Total Protein 6.3 g/dL (6.4-8.2); Troponin I 31.6 ng/L (0.00-60.4)
[2024-07-08 21:10] LABS: D Dimer 0.25 mg/L (0.19-0.50)
--- NOTE | 2024-07-08 21:14 | ED.SOB ---
HPI - SOB/Dyspnea General Chief Complaint: Shortness of Breath/Dyspnea Stated Complaint: Shortness of breath Time Seen by Provider: 07/08/24 20:10 Source: patient Mode of arrival: ambulatory Limitations: no limitations History of Present Illness HPI Narrative: this is a 33-year-old male with a history of AFib and cardiomyopathy has been noncompliant with his medication and noncompliant with some follow-up with his data entry representative, patient presents with a shortness of breath cough productive of yellow sputum with no fever chills no chest pain no abdominal pain no nausea vomiting no flank pain or dysuria. MD elicited complaint: shortness of breath and cough Onset (ago): day(s) Timing: constant Severity: moderate Related Data Home Medications Medication Instructions Recorded Confirmed amiodarone 200 mg tablet 200 mg PO DAILY 09/17/22 01/16/24 carvedilol 12.5 mg tablet 25 mg PO DAILY 09/17/22 01/16/24 furosemide 20 mg tablet 20 mg PO DAILY 09/17/22 01/16/24 losartan 50 mg tablet 50 mg PO DAILY 09/17/22 01/16/24 rivaroxaban 20 mg tablet (Xarelto) 20 mg PO DAILY 09/17/22 01/16/24 spironolactone 25 mg tablet 12.5 mg PO DAILY 09/17/22 01/16/24 Allergies Allergy/AdvReac Type Severity Reaction Status Date / Time No Known Allergies Allergy Verified 06/06/23 13:07 Review of Systems Review of Systems: All systems reviewed & are unremarkable except as noted in HPI and below PMFSH Past Medical History Medical History ASD (atrial septal defect) Asthma Atrial fibrillation Cardiomyopathy Surgical History Surgical History History of repair of congenital atrial septal defect (ASD) Family History Family History Mother No problems noted. Social History Social History Smoking packs per day: 2 Smoking cigarettes per day: 40.0 Years smoked: 17 Smoking pack-years: 34.00 Smoking status: Former smoker Tobacco type: cigarettes Smoking end date: 10/11/21 Alcohol intake: current Drinks per week: 6 Alcohol use details: denies alcohol use Substance use: never Substance use type: other Other substance usage details: vape pen with THC Last use: 05/23/23 Lack of Transportation: No Lack of Food: Never True Current Housing: I Have Housing Concerned About Future Housing: No Difficulty Paying Gas/Electric Bills: No Difficulty Paying for Meds: No Currently Unemployed: No Education: Grade School Difficulty w/ Childcare or Family Care: No Spiritual care concerns: No Exam Const: General: healthy appearing Nutritional Appearance: well nourished Orientation/consciousness: patient oriented x3 Limitations: no limitations Neck: Neck: normal visual inspection and no lymphadenopathy Chest: Chest palpation & inspection: normal inspection of the chest Resp: Effort & Inspection: normal respiratory effort Auscultation: clear to auscultation bilaterally Cardio: Rate: regular rate Rhythm: regular rhythm GI: GI Palp: Yes Soft to palpation Auscultation: normal bowel sounds : General: Yes bladder normal to palpation Urinary Catheter: Urinary Catheter: patent and draining Back/Spine/Pelvis: Back: no CVA tenderness Course Course Emergency Course: Patient with cough and congestion chest x-ray showed possibility of lower lobe pneumonia and will give a dose of Levaquin 500mg p.o. patient received breathing treatment along with IV steroids and after treatments patient symptoms have improved. Reiterated that the patient needs to take his home medication and to follow with his data entry representative as soon as possible for further evaluation. Rest of his blood work was unremarkable, except for his BNP was mildly elevated advised for patient to take his Lasix along with the rest
[2024-07-08] MEDS: levoFLOXacin 500 MG TABLET PO (21:18)
--- NOTE | 2024-07-15 13:46 | PC.NURSE ---
final blood cultures x2 reviewed, no growth after 5 days. no change in plan of care
== END 2024-07-08 21:29 | disposition home or self-care (01) ==
PROVIDERS: Emergency Provider Emergency Medicine
DX: J06.9 Acute upper respiratory infection, unspecified (principal); I48.91 Unspecified atrial fibrillation; I42.8 Other cardiomyopathies; Z87.891 Personal history of nicotine dependence; Z20.822 Contact with and (suspected) exposure to COVID-19
CPT/HCPCS: 36415; 71045; 80053; 83605; 83735; 83880; 84484; 85025; 85380; 85610; 85730; 87040; 87637; 93005; 94640; 96374; 99284; A9270; J2919

== ENCOUNTER 2024-09-18 03:16 | Emergency (ER) | payer SELFPAY ==
[2024-09-18] VITALS (51 sets, daily range): BP systolic 86–134; BP diastolic 62–95; PULSE 71–139; RESP 9–36; TEMP 36.4–36.6; O2SAT 89–100
--- NOTE | ~2024-09-18 | CT_ITS ---
Clinical Indication: Shortness of breath CT Scan of the Chest with Contrast: Technique: Contiguous sections were acquired throughout the chest after intravenous administration of 100 cc of Omnipaque 350. Dose reduction technique was used on this scan by utilizing automated expos ure control and iterative reconstruction technique. The dose-length product (DLP) was 379.51 mGy-cm. COMPARISON: 04/06/2022 Findings: There is mild mediastinal and bilateral hilar lymphadenopathy. No axillary lymphadenopathy. There is no filling defect in the pulmonary arterial tree to suggest pulmonary embolus. There is no aortic ane urysm. There is no evidence of pleural or pericardial effusion. There is patchy consolidation extensive on the right lower lobe and to a slightly lesser extent the l eft lower lobe, with additional focal airspace consolidation in the right upper lobe. Images through the upper abdomen reveal borderline splenomegaly. Impression: Patchy consolidation involving the right lower lobe and left lower lobe, and focal in the right upper lobe, most compatible with multifocal pneumonia. Pulmonary edema could be an alternative considerati on. Mild mediastinal and bilateral hilar lymphadenopathy. Correlate for reactive lymphadenopathy versus o ther potential etiologies such as sarcoid. Reviewed, dictated and finalized at location . P [facility] Impression: Patchy consolidation involving the right lower lobe and left lower lobe, and fo main in the right upper lobe, most compatible with multifocal pneumonia. Pulmona ry edema could be an alternative consideration. Mild mediastinal and bilateral hilar lymphadenopathy. Correlate for reactive ly mphadenopathy versus other potential etiologies such as sarcoid.
--- NOTE | ~2024-09-18 | XR_ITS ---
Clinical Indication: Cough PA and lateral views of the chest: Comparison: 07/08/2024 Findings: There is mild patchy bibasilar and perihilar airspace disease. No pleural effusion or pneum othorax.. Cardiomediastinal silhouette is within normal limits. Bones and soft tissues are unremarka ble. Impression: Patchy bibasilar and perihilar airspace disease. Correlate for pneumonia versus possibly pulmonary ed linnea. Reviewed, dictated and finalized at location M. PROFESSIONAL Impression: Patchy bibasilar and perihilar airspace disease. Correlate for pneumonia versus possibly pulmonary edema.
--- NOTE | 2024-09-18 03:29 | ED_ITS ---
HPI - URI/Sore Throat General Chief Complaint: Upper Respiratory Infection Stated Complaint: trouble breathing Time Seen by Provider: 09/18/24 03:29 Source: patient and family Mode of arrival: ambulatory Limitations: no limitations History of Present Illness HPI Narrative: Patient is a 34-year-old male with coronary artery disease and open heart surgery with associated CHF. Patient has presented with shortness of breath and a cough for the past 2 weeks. Patient also has atrial fibrillation on Xarelto and amiodarone. There is a remote history of asthma. patient has been off all his medications for the past 2 months due to financial issues. MD elicited complaint: cough and nasal congestion Pertinent past history: other ( Coronary artery disease, atrial septal defect, CHF, asthma, AFib /Xarelto) Onset (ago): week(s) (2) Consistency: constant and progressively worsening Severity: moderate Pain scale (0-10): 5 Description of mucous: clear, watery, yellow and bloody Able to tolerate fluids by mouth: Yes Exacerbating factors: exertion Relieving factors: rest Context: sick contacts and other ( Patient presents with upper and lower respiratory complaints with significant past medical history) Associated symptoms: nasal congestion, cough and shortness of breath Treatments prior to arrival: none Related Data Home Medications Medication Instructions Recorded Confirmed amiodarone 200 mg tablet 200 mg PO DAILY 09/17/22 09/18/24 carvedilol 12.5 mg tablet 25 mg PO DAILY 09/17/22 09/18/24 furosemide 20 mg tablet 20 mg PO DAILY 09/17/22 09/18/24 losartan 50 mg tablet 50 mg PO DAILY 09/17/22 09/18/24 rivaroxaban 20 mg tablet (Xarelto) 20 mg PO DAILY 09/17/22 09/18/24 spironolactone 25 mg tablet 12.5 mg PO DAILY 09/17/22 09/18/24 rivaroxaban 20 mg tablet (Xarelto) 20 mg PO DAILY 09/18/24 09/18/24 Allergies Allergy/AdvReac Type Severity Reaction Status Date / Time No Known Allergies Allergy Verified 09/18/24 03:32 Review of Systems Review of Systems: All systems reviewed & are unremarkable except as noted in HPI and below Constitutional: Constitutional: Reports no additional constitutional complaints Eyes: Eyes: Reports no additional eye complaints ENT: Reports system reviewed and no additional complaints, except as documented Cardiovascular: Cardiovascular: Reports no additional cardiovascular complaints Respiratory: Respiratory: Reports no additional respiratory complaints Gastrointestinal: Gastrointestinal: Reports no additional gastrointestinal complaints Genitourinary: Genitourinary: Reports no additional male genitourinary complaints Musculoskeletal: Musculoskeletal: Reports no additional musculoskeletal complaints Integumentary/Breasts: Skin/Breast: Reports system reviewed and no additional complaints, except as docu Neurologic: Reports system reviewed and no additional complaints, except as documented Psychiatric: Psychiatric: Reports no additional psychiatric complaints Endocrine: Endocrine: Reports no additional endocrine complaints Hematologic/Lymphatic: Hematologic/Lymphatic: Reports no additional hematolo gic/lymphatic complaints Allergic/Immunologic: Allergic/Immunologic: Reports no additional allergic/immunologic complaints PMFSH Past Medical History Medical History ASD (atrial septal defect) Asthma Atrial fibrillation Cardiomyopathy Surgical History Surgical History History of repair of congenital atrial septal defect (ASD) Family History Family History Mother No problems noted. Social History Social History Smoking packs per day: 2 Smoking cigarettes per day: 40.0 Years smoked: 17 Smoking pack-years: 34.00 Smoking status: Former smoker Tobacco type: cigarettes Smoking end date: 10/11/21 Alcohol intake: current Drinks per week: 6 Alcohol use details: denies alcohol use Substance use: never Substance use type: other Other substance usage details: vape pen with THC Last use: 05/23/23 Lack of Transportation: No Lack of Food: Never True Current Housing: I Have Housing Concerned About Future Housing: No Difficulty Paying Gas/Electric Bills: No Difficulty Paying for Meds: No Currently Unemployed: No Education: Grade School Difficulty w/ Childcare or Family Care: No Spiritual care concerns: No Exam Const: General: ill appearing Nutritional Appearance: well nourished Orientation/consciousness: patient oriented x3 Limitations: no limitations HENMT: Head: normal to inspection Ears: external ears normal Face/Nose/Sinus: Normal external nose present Eyes: Conjunctivae: conjunctivae normal Pupils: Equal, round and reactive pupils present EOM: EOMs intact bilaterally Neck: Neck: normal visual inspection Chest: Chest palpation & inspection: normal inspection of the chest Resp: Effort & Inspection: abnormal respiratory effort, labored, no retractions, tachypneic and no use of accessory muscles Auscultation: not clear to auscultation bilaterally, crackles, rales, rhonchi, no wheezes, breath sounds present and diminished lung sounds Other: all sounds are throughout lung caba and specifically crackles are noted more so in the right lower lung Cardio: Rate: regular rate Rhythm: regular rhythm Heart sounds: no murmurs GI: Inspection: non-distended GI Palp: Yes Soft to palpation and No Tenderness to palpation present (GI) Auscultation: normal bowel sounds : General: Yes bladder normal to palpation Back/Spine/Pelvis: Back: no CVA tenderness Skin: General skin exam: normal color Rashes: no rashes Wounds: no wounds Neuro: General: patient oriented x3 Cranial nerves: Yes Nystagmus not pres ent Speech: normal speech Extrem: General: normal to inspection Psych: Mental Status: mental status grossly normal Affect: normal affect Attitude: cooperative Course Vital Signs Vital signs: Vital Signs Temperature 36.4 C 09/18/24 03:16 Pulse Rate 71 09/18/24 03:16 Respiratory Rate 17 09/18/24 03:16 Blood Pressure 116/76 09/18/24 03:16 Pulse Oximetry 94 09/18/24 03:16 Oxygen Delivery Room Air 09/18/24 03:16 Temperature 36.4 C 09/18/24 03:16 Pulse Rate 116 H 09/18/24 06:26 Respiratory Rate 20 09/18/24 06:26 Blood Pressure 121/71 09/18/24 06:16 Pulse Oximetry 95 09/18/24 06:26 Oxygen Delivery Nasal Cannula 09/18/24 06:26 Oxygen Flow Rate 2 09/18/24 06:26 MDM - URI/Sore Throat MDM Narrative Medical decision making narrative: patient is a 34-year-old male with upper lower respiratory tract complaints with significant past medical history. We will do a respiratory/Cardiac workup at this time to include sepsis. He has been off all his medications so we will check a D-dimer as he is off Xarelto. problem list: AFib with RVR RSV positive bronchiolitis with hypoxia abnormal EKG hypokalemia and hypomagnesemia CHF exacerbation with elevated BNP pneumonia right lower lobe with hypoxia /early sepsis elevated troponin non compliant with home medications for 2 months elevated lactic acid patient signed out to oncoming physician at shift change. Patient to be transferred to higher level medical care at [facility]. He will need cardiology. Lab Data Attestation: I reviewed the patient's lab results. 09/18/24 04:36 09/18/24 04:36 Labs: Lab Results 09/18/24 09/18/24 09/18/24 Range/Units 03:29 04:35 04:36 WBC 6.3 (4.8-10.8) K/mm3 RBC 4.87 (4.70-6.10) M/mm3 Hgb 14.6 (14.0-18.0) g/dL Hct 42.2 (40.0-54.0) % MCV 86.7 (78.0-102.0) fL MCH 30.0 (27.0-31.0) pg MCHC 34.6 (32-36) g/dL RDW 14.1 (11.6-14.4) % Plt Count 320 (150-420) K/mm3 MPV 10.2 (8.7-11.0) fl Immature Gran % (Auto) 0.3 H (0.0-0.0) % Neut % (Auto) 78.4 H (50.0-70.0) % Lymph % (Auto) 11.1 L (18.0-42.0) % [place] % (Auto) 8.1 (2.0-11.0) % Eos % (Auto) 1.6 (1.0-6.0) % Baso % (Auto) 0.5 (0.0-1.0) % Lymph # (Auto) 0.70 L (1.10-4.50) K/mm3 [place] # (Auto) 0.51 (0.10-0.90) K/mm3 Eos # (Auto) 0.10 (0.02-0.50) K/mm3 Baso # (Auto) 0.03 (0.00-0.10) K/mm3 Abs Immat Gran (auto) 0.02 H (0.00-0.00) K/mm3 Absolute Neuts (auto) 4.93 (1.70-7.20) K/mm3 Absolute Nucleated RBC 0.00 (0.00-0.00) K/mm3 Nucleated RBC % 0.0 (0-0.0) % PT 11.5 H (9.64-11.0) Seconds INR 1.0 APTT 25.9 (23.9-30.70) Sec D-Dimer 0.73 H* (0.19-0.50) mg/L Sodium 141 (136-145) mmol/L Potassium 3.3 L (3.5-5.1) mmol/L Chloride 104 (98-108) mmol/L Carbon Dioxide 24 (21-32) mmol/L Anion Gap 13 H (4-12) mmol/L BUN 10 (7-18) mg/dL Creatinine 1.04 (0.70-1.30) mg/dL Estim Creat Clear Calc 81 ml/min Estimated GFR > 60 (59 - ) Glucose 98 (70-99) mg/dL Calculated Osmolality 291 (285-295) mOsm/kg Lactic Acid 2.6 H (0.4-2.0) mmol/L Calcium 8.4 L (8.5-10.1) mg/dL Magnesium (1.8-2.4) mg/dL Total Bilirubin 0.8 (0.00-1.00) mg/dL AST 19 (15-37) U/L ALT 26 (16-63) U/L Alkaline Phosphatase 100 (46-116) U/L Troponin I 71.9 H* (0.00-60.4) ng/L NT-Pro-B Natriuret Pep 2126 H (0-125) pg/mL Total Protein 6.0 L (6.4-8.2) g/dL Albumin 3.5 (3.4-5.0) g/dL Urine Color (Yellow) Urine Appearance (Clear) Urine pH (5.0-8.0) Ur Specific [place] (1.010-1.020) Urine Protein (Negative) Urine Glucose (UA) (Negative) Urine Ketones (Negative) Ur Blood (Man) (Negative) Urine Nitrate (Negative) Urine Bilirubin (Negative) Urine Urobilinogen (0.2-1.0) mg/dL Leukocyte Esterase Rfl (Negative) BSAHIR/UL Influenza A (RT-PCR) Negative (Negative) Influenza B (RT-PCR) Negative (Negative) RSV (RT-PCR) Positive A (Negative) SARS-CoV-2 RNA (RT-PCR) Negative (Negative) 09/18/24 09/18/24 Range/Units 05:25 06:03 WBC (4.8-10.8) K/mm3 RBC (4.70-6.10) M/mm3 Hgb (14.0-18.0) g/dL Hct (40.0-54.0) % MCV (78.0-102.0) fL MCH (27.0-31.0) pg MCHC (32-36) g/dL RDW (11.6-14.4) % Plt Count (150-420) K/mm3 MPV (8.7-11.0) fl Immature Gran % (Auto) (0.0-0.0) % Neut % (Auto) (50.0-70.0) % Lymph % (Auto) (18.0-42.0) % Valley % (Auto) (2.0-11.0) % Eos % (Auto) (1.0-6.0) % Baso % (Auto) (0.0-1.0) % Lymph # (Auto) (1.10-4.50) K/mm3 Valley # (Auto) (0.10-0.90) K/mm3 Eos # (Auto) (0.02-0.50) K/mm3 Baso # (Auto) (0.00-0.10) K/mm3 Abs Immat Gran (auto) (0.00-0.00) K/mm3 Absolute Neuts (auto) (1.70-7.20) K/mm3 Absolute Nucleated RBC (0.00-0.00) K/mm3 Nucleated RBC % (0-0.0) % PT (9.64-11.0) Seconds INR APTT (23.9-30.70) Sec D-Dimer (0.19-0.50) mg/L Sodium (136-145) mmol/L Potassium (3.5-5.1) mmol/L Chloride (98-108) mmol/L Carbon Dioxide (21-32) mmol/L Anion Gap (4-12) mmol/L BUN (7-18) mg/dL Creatinine (0.70-1.30) mg/dL Estim Creat Clear Calc ml/min Estimated GFR (59 - ) Glucose (70-99) mg/dL Calculated Osmolality (285-295) mOsm/kg Lactic Acid (0.4-2.0) mmol/L Calcium (8.5-10.1) mg/dL Magnesium 1.5 L (1.8-2.4) mg/dL Total Bilirubin (0.00-1.00) mg/dL AST (15-37) U/L ALT (16-63) U/L Alkaline Phosphatase (46-116) U/L Troponin I (0.00-60.4) ng/L NT-Pro-B Natriuret Pep (0-125) pg/mL Total Protein (6.4-8.2) g/dL Albumin (3.4-5.0) g/dL Urine Color Light yellow (Yellow) Urine Appearance Clear (Clear) Urine pH 6.5 (5.0-8.0) Ur Specific [place] <= 1.005 L (1.010-1.020) Urine Protein Negative (Negative) Urine Glucose (UA) Negative (Negative) Urine Ketones Negative (Negative) Ur Blood (Man) Negative (Negative) Urine Nitrate Negative (Negative) Urine Bilirubin Negative (Negative) Urine Urobilinogen 0.2 (0.2-1.0) mg/dL Leukocyte Esterase Rfl Negative (Negative) BASHIR/UL Influenza A (RT-PCR) (Negative) Influenza B (RT-PCR) (Negative) RSV (RT-PCR) (Negative) SARS-CoV-2 RNA (RT-PCR) (Negative) Imaging Data Attestation: I personally reviewed and interpreted this imaging study as follows: Radiologist's impression: chest x-ray shows right lower lobe/ right middle lobe infiltrate and bilateral pulmonary edema (pending final reading ) CTA of the chest shows Impression: Patchy consolidation involving the right lower lobe and left lower lobe, and focal in the right upper lobe, most compatible with multifocal pneumonia. Pulmonary edema could be an alternative consideration. Mild mediastinal and bilateral hilar lymphadenopathy. Correlate for reactive lymphadenopathy versus other potential etiologies such as sarcoid. ECG Data EKG #1: Attestation: I personally reviewed and interpreted this ECG as follows: ECG completion date: 09/18/24 ECG completion time: 05:13 Interpretation: questionable ST elevation changes which we will 1st decrease the heart rate and repeat the EKG; no current chest pain EKG Interpretation: tachycardia (RVR), atrial fibrillation, no ectopy, non-specific ST changes, normal QRS, normal QT and left axis EKG #2: Attestation: I personally reviewed and interpreted this ECG as follows: ECG completion date: 09/18/24 ECG completion time: 06:01 Interpretation: lead V3 has ST elevation but no other contiguous leads have them present EKG Interpretation: tachycardia, atrial fibrillation, PVCs, non-specific ST changes, normal QRS, normal QT and left axis Critical Care Time Critical Care Time Critical Care Time: Yes Total Critical Care Time: 30 Discharge Plan Discharge Clinical Impression: Atrial fibrillation with RVR, Elevated troponin, Acute lactic acidosis Acute exacerbation of CHF (congestive heart failure) Qualifiers: Heart failure type: unspecified Qualified Code(s): I50.9 - Heart failure, unspecified Respiratory syncytial virus (RSV) Qualifiers: RSV infection type: unspecified Qualified Code(s): B33.8 - Other specified vi ral diseases Pneumonia Qualifiers: Pneumonia type: due to unspecified organism Laterality: right Lung location: lower lobe of lung Qualified Code(s): J18.9 - Pneumonia, unspecified organism Patient Disposition: Acute Care Hospital Condition: Serious Prescriptions: No Action losartan 50 mg tablet 50 mg PO DAILY carvedilol 12.5 mg tablet 25 mg PO DAILY amiodarone 200 mg tablet 200 mg PO DAILY spironolactone 25 mg tablet 12.5 mg PO DAILY furosemide 20 mg tablet 20 mg PO DAILY Xarelto 20 mg tablet 20 mg PO DAILY albuterol sulfate 90 mcg/actuation HFA aerosol inhaler 2 inh inhalation QID PRN (Reason: shortness of breath or wheezing) Qty: 6.7 0RF Xarelto 20 mg tablet 20 mg PO DAILY Follow-up/Referrals: Kate,MD Zain [Primary Care Provider] - Time of Disposition: 06:57
--- NOTE | 2024-09-18 03:36 | ECG_ITS ---
Test Date: 2024-09-18 04:46:04 Measurements Intervals [place] Rate: 122 P: 0 PA: 0 QRS: -6 QRSD: 104 T: 107 QT: 340 QTc: 486 Interpretive Statements ATRIAL FIBRILLATION WITH RAPID VENTRICULAR RESPONSE NONSPECIFIC ST & T-WAVE ABNORMALITY Compared to ECG 07/08/2024 20:26:40 T-wave abnormality now present Electronically Signed On 09-18-2024 20:17:36 ELECTRIC SHIPYARD OPERATOR by Christiano Barraza M.D.
[2024-09-18] MEDS: methylPREDNISolone SOD SUCC 125 MG VIAL IM (03:59)
[2024-09-18] MEDS: IPRATROPIUM 0.5 MG/ALBUTEROL SULFATE 2.5 MG AMPUL.NEB 3 ML INHALATION (03:59)
[2024-09-18 04:19] LABS: Influenza A QL RT-PCR Negative (Negative); Influenza B QL RT-PCR Negative (Negative); RSV RNA, RT-PCR Positive (Negative); SARS-CoV-2 RNA PCR Negative (Negative)
[2024-09-18] MEDS: guaiFENesin/CODEINE 100/10 MG 5 ML SYRUP 10 ML PO ×2 (04:33→09:36)
[2024-09-18 04:42] LABS: Basophils Absolute Auto 0.03 K/mm3 (0.00-0.10); Basophils Percent Auto 0.5 % (0.0-1.0); Eosinophils Percent Auto 1.6 % (1.0-6.0); Hematocrit 42.2 % (40.0-54.0); Hemoglobin 14.6 g/dL (14.0-18.0); Immature Granulocyte Absolute 0.02 K/mm3 (0.00-0.00); Immature Granulocyte Percent A 0.3 % (0.0-0.0); Lymphocytes Percent Auto 11.1 % (18.0-42.0); Mean Corpuscular HGB Conc 34.6 g/dL (32-36); Mean Corpuscular Volume 86.7 fL (78.0-102.0); Mean Platelet Volume 10.2 fl (8.7-11.0); Monocytes Absolute Auto 0.51 K/mm3 (0.10-0.90); Monocytes Percent Auto 8.1 % (2.0-11.0); Neutrophils Absolute Auto 4.93 K/mm3 (1.70-7.20); Neutrophils Percent Auto 78.4 % (50.0-70.0); Platelet Count Result 320 K/mm3 (150-420); Red Blood Count 4.87 M/mm3 (4.70-6.10); Red Cell Distribution Width 14.1 % (11.6-14.4); White Blood Count 6.3 K/mm3 (4.8-10.8)
[2024-09-18 05:03] LABS: Alanine Aminotransferase 26 U/L (16-63); Albumin Level 3.5 g/dL (3.4-5.0); Alkaline Phosphatase 100 U/L (46-116); Anion Gap 13 mmol/L (4-12); Aspartate Amino Transferase 19 U/L (15-37); Bilirubin,Total 0.8 mg/dL (0.00-1.00); Blood Urea Nitrogen 10 mg/dL (7-18); Calcium 8.4 mg/dL (8.5-10.1); Carbon Dioxide 24 mmol/L (21-32); Chloride 104 mmol/L (98-108); Estimated CRCL calculation 81 ml/min; Estimated Glomerular Filt Rate > 60; Glucose 98 mg/dL (70-99); Lactic Acid Reflex 2.6 mmol/L (0.4-2.0); NT Pro B Type Natriuretic Pept 2126 pg/mL (0-125); Osmolality Calculated 291 mOsm/kg (285-295); Potassium 3.3 mmol/L (3.5-5.1); Sodium 141 mmol/L (136-145)
[2024-09-18 05:04] LABS: Troponin I 71.9 ng/L (0.00-60.4)
[2024-09-18 05:06] LABS: D Dimer 0.73 mg/L (0.19-0.50); Partial Thromboplastin Time 25.9 Sec (23.9-30.70); Prothrombin Time 11.5 Seconds (9.64-11.0)
[2024-09-18] MEDS: FUROSEMIDE INJ 20 MG/2 ML VIAL IV PUSH (05:23)
[2024-09-18] MEDS: dilTIAZem HCl INJ 25 MG/5 ML VIAL 5 MG IV PUSH ×2 (05:23→05:43)
[2024-09-18] MEDS: ASPIRIN 81 MG CHEWABLE TABLET 324 MG PO (05:23)
[2024-09-18] MEDS: PIPERACILLN/TAZ 3.375GM/NS50ML 3.375 GM/50 ML BAG IVPB (05:28)
--- NOTE | 2024-09-18 05:36 | ECG_ITS ---
Test Date: 2024-09-18 05:55:55 Measurements Intervals [place] Rate: 108 P: 0 UT: 0 QRS: -16 QRSD: 110 T: 104 QT: 370 QTc: 497 Interpretive Statements ATRIAL FIBRILLATION WITH RAPID VENTRICULAR RESPONSE WITH ABERRANT CONDUCTION OR VENTRICULAR PREMATURE COMPLEXES NONSPECIFIC T-WAVE ABNORMALITY Compared to ECG 09/18/2024 04:46:04 Ventricular premature complex(es) now present Aberrant conduction of supraventricular beat(s) now present T-wave abnormality still present Electronically Signed On 09-18-2024 20:17:48 DOSIER OPERATOR by Christiano Barraza M.D.
[2024-09-18 05:47] LABS: Magnesium 1.5 mg/dL (1.8-2.4)
[2024-09-18 06:09] LABS: Add Urine Microscopic? NO; Appearance Urine Clear (Clear); Bilirubin Urine Negative (Negative); Blood Urine Negative (Negative); Color Urine Light Yellow (Yellow); Glucose Urine UA Negative (Negative); Ketones Urine Negative (Negative); Leukocyte Esterase Ur Negative LEU/UL (Negative); Nitrate Urine Negative (Negative); Protein Urine Negative (Negative); Specific Grav Ur <= 1.005 (1.010-1.020); Urobilinogen Urine 0.2 mg/dL (0.2-1.0); pH Urine 6.5 (5.0-8.0)
[2024-09-18] MEDS: POTASSIUM CHLORIDE 20 MEQ ER TABLET 40 MEQ PO (06:37)
[2024-09-18] MEDS: MAGNESIUM SULF 2 GM/WATER 50ML 2 GM/50 ML BAG IVPB (06:37)
[2024-09-18] MEDS: SODIUM CHLORIDE 0.9% IV 1,000 ML 999 ML IV CONT (06:59)
[2024-09-18] MEDS: ENOXAPARIN 100 MG/ML SYRINGE 80 MG SUB-Q (07:04)
[2024-09-18 07:07] LABS: Reflex Lactic Acid Yes or No Add Lactic
[2024-09-18 07:30] LABS: Lactic Acid 1.1 mmol/L (0.4-2.0)
--- NOTE | 2024-09-18 07:30 | PC.NURSE ---
Lab calls with critical troponin of 69.5. Dr. Bauer made aware.
[2024-09-18 07:32] LABS: Troponin I 69.5 ng/L (0.00-60.4)
[2024-09-18] MEDS: AZITHROMYCIN 500 MG/NS 250 ML 500 MG/250 ML BAG 250 MG IVPB (08:35)
[2024-09-18] MEDS: ALBUTEROL SULFATE NEB 2.5 MG/3 ML INH INHALATION (13:05)
--- NOTE | 2024-09-20 13:25 | PC.NURSE ---
blood culture reviewed, no growth 5 days. preliminary
--- NOTE | 2024-09-24 15:22 | PC.NURSE ---
final blood cultures x2 reviewed. no growth after 5 days. no change in plan of care.
== END 2024-09-18 15:15 | disposition short-term general hospital (02) ==
PROVIDERS: Emergency Medicine; Emergency Provider Emergency Medicine; PCP Family Medicine
DX: I48.20 Chronic atrial fibrillation, unspecified (principal); R79.89 Other specified abnormal findings of blood chemistry; E87.21 Acute metabolic acidosis; B33.8 Other specified viral diseases; J18.9 Pneumonia, unspecified organism; I50.9 Heart failure, unspecified; I25.10 Atherosclerotic heart disease of native coronary artery without angina pectoris; Z79.899 Other long term (current) drug therapy; Z79.01 Long term (current) use of anticoagulants; Z87.891 Personal history of nicotine dependence; Z20.822 Contact with and (suspected) exposure to COVID-19
CPT/HCPCS: 36415; 71046; 71275; 80053; 81003; 83605; 83735; 83880; 84484; 85025; 85380; 85610; 85730; 87040; 87637; 93005; 94640; 96365; 96366; 96367; 96372; 96375; 99285; A9270; J0456; J1650; J1940; J2543; J2919; J3475; J7030; Q9967